=== PATIENT | female | born 2005 | race Caucasian/White ===

== ENCOUNTER 2025-04-23 17:51 | Emergency (ER) | payer MEDICAID ==
[~2025-04-23] VITALS: Ht 165.1 cm; Wt 68.0 kg
[2025-04-23 18:00] VITALS: O2SAT 89
[2025-04-23 18:25] LABS: HEMATOCRIT. 38.5 % (36.0-48.0); HEMOGLOBIN. 12.9 g/dL (12.0-16.0); MEAN PLATELET VOLUME 7.5 fl (7.4-10.4); PLATELET 260 x1000/uL (130-400); RED BLOOD CELL COUNT 4.22 mill/uL (4.2-5.4); RED CELL DISTRIBUTION WIDTH 12.7 % (11.6-14.6)
[2025-04-23 18:38] LABS: CREATININE 0.9 mg/dL (0.6-1.0)
[2025-04-23 18:39] LABS: UREA NITROGEN BLOOD 9 mg/dL (9-23)
[2025-04-23 18:40] LABS: ASPARTATE AMINOTRANSFERASE 17 IU/L (<34)
[2025-04-23 18:41] LABS: BILIRUBIN DIRECT 0.2 mg/dL (<=3.0); BILIRUBIN TOTAL 0.6 mg/dL (0.1-1.0); PROTEIN TOTAL 7.7 g/dL (6.0-8.3)
[2025-04-23 18:46] LABS: BAND% 1.0 % (1.0-6.0); LYMPHOCYTES % MANUAL 7.0 % (20.0-60.0); MONOCYTES % MANUAL 1.0 % (2.0-8.0); NEUTROPHILS % MANUAL 91.0 % (45.0-75.0); PLATELET ESTIMATE NORMAL
[2025-04-23] MEDS: KETOROLAC 15MG/ML VIAL IV ONE (19:06)
[2025-04-23] MEDS: CEFTRIAXONE 1GM/50ML 50 ML IV ONE (19:07)
[2025-04-23] MEDS: SODIUM CHLORIDE 0.9% 1,000 ML IV ONE (19:07)
[2025-04-23] MEDS: ONDANSETRON HCL 4MG/2ML INJ IV ONE (19:07)
[2025-04-23 19:18] LABS: CLARITY URINE CLEAR (CLEAR); COLOR URINE YELLOW (YELLOW); GLUCOSE URINE NEGATIVE (NEGATIVE); KETONES URINE 3+ (NEGATIVE); LEUKOCYTE ESTERASE URINE 1+ (NEGATIVE); NITRITE URINE NEGATIVE (NEGATIVE); OCCULT BLOOD URINE 2+ (NEGATIVE); PH URINE 6.5 (4.5-8.0); PROTEIN URINE NEGATIVE (NEGATIVE); SPECIFIC GRAVITY URINE 1.021 (1.005-1.030); UROBILINOGEN URINE 0.2 E.U./dL (0.2-1.0)
[2025-04-23 19:21] LABS: BACTERIA URINE TRACE; SQUAMOUS EPITHELIAL CELL URINE FEW /lpf (RARE/1+)
[2025-04-23] MEDS: ACETAMINOPHEN 325MG TABLET PO ONE (21:01)
[2025-04-23] MEDS ORDERED: CEPH500C2 MT (21:19)
[2025-04-23] MEDS ORDERED: NAPR-1129 MT (21:19)
[2025-04-23 21:30] VITALS: BP 105/68; PULSE 78; RESP 16; TEMP 37; O2SAT 100
== END 2025-04-23 21:39 | disposition home or self-care (01) ==
LOC: ER 18:03
DX: N10 Acute pyelonephritis (principal); Z79.899 Other long term (current) drug therapy
CPT/HCPCS: 99284; 96365; 96375; 80076; 80048; 81003; 81025; 83605; 83690; 85025; 87040; 36415; J1885; J0696; J2405; J7030

== ENCOUNTER 2025-04-25 16:00 | Emergency (ER) | payer MEDICAID ==
[~2025-04-25] VITALS: Ht 167.6 cm; Wt 60.0 kg
[~2025-04-25 16:00] MED LIST: CEPH500C2 MT; NAPR-1129 MT
[2025-04-25 16:05] VITALS: O2SAT 99
[2025-04-25 17:06] LABS: CLARITY URINE CLOUDY (CLEAR); COLOR URINE YELLOW (YELLOW); GLUCOSE URINE NEGATIVE (NEGATIVE); KETONES URINE 2+ (NEGATIVE); LEUKOCYTE ESTERASE URINE 3+ (NEGATIVE); NITRITE URINE NEGATIVE (NEGATIVE); OCCULT BLOOD URINE 2+ (NEGATIVE); PH URINE 6.5 (4.5-8.0); PROTEIN URINE 1+ (NEGATIVE); SPECIFIC GRAVITY URINE 1.015 (1.005-1.030); UROBILINOGEN URINE 1.0 E.U./dL (0.2-1.0)
[2025-04-25 17:20] LABS: BACTERIA URINE 1+; SQUAMOUS EPITHELIAL CELL URINE 2+ /lpf (RARE/1+)
[2025-04-25] MEDS ORDERED: SULF1TAB48 MT (18:52)
[2025-04-25 18:55] VITALS: BP 107/68; PULSE 75; TEMP 37.1; O2SAT 99
[2025-04-25 19:14] VITALS: RESP 16
[2025-04-25] MEDS: ONDANSETRON HCL 4MG/2ML INJ IM ONE (19:14)
[2025-04-25] MEDS: KETOROLAC 30MG/ML VIAL IM ONE (19:14)
== END 2025-04-25 19:14 | disposition home or self-care (01) ==
LOC: ER 16:00
DX: N12 Tubulo-interstitial nephritis, not specified as acute or chronic (principal); Z79.899 Other long term (current) drug therapy
CPT/HCPCS: 99284; 81003; 81025; 96372; J1885; J2405